=== PATIENT | female | born 1935 | race American Indian/Alaskan Native ===

== ENCOUNTER 2017-09-23 09:12 | Outpatient (CLI) | payer MEDICARE ==
[2017-09-23 10:08] LABS: Hematocrit 37.3 % (30.3-42.9); Hemoglobin 12.2 gm/dl (10.1-14.3); Mean Corpuscular HGB Conc 33 % (30-34); Mean Corpuscular Hemoglobin 31 pg (28-32); Mean Corpuscular Volume 93 fl (79-97); Platelet Count 214 K/mm3 (140-440); Red Blood Count 3.99 M/mm3 (3.65-5.03); Red Cell Distribution Width 15.2 % (13.2-15.2)
[2017-09-23 10:26] LABS: Albumin 3.8 g/dL (3.9-5); Calcium 9.1 mg/dL (8.4-10.2)
[2017-09-23 10:41] LABS: Bacteria,Urine 1+ /HPF (Negative); Bilirubin,Urine NEG (Negative); Blood,Urine NEG (Negative); Color,Urine Yellow (Yellow); Mucus,Urine 1+ /HPF; Urobilinogen,Urine < 2.0 mg/dL (<2.0)
[2017-09-23 10:45] LABS: Creatinine,Urine 259.9 mg/dL (0.1-20.0); Protein/Creatinine Ratio,Urine 0.62
--- NOTE | 2017-09-24 08:02 | Ultrasound Report ---
ULTRASOUND RENAL BILATERAL HISTORY: Abnormal results of kidney function studies. TECHNIQUE: transabdominal ultrasound with color Doppler interrogation. FINDINGS: The right kidney measures 8.8 x 4.5 x 4.5cm. Right renal cortex: 1.1cm. The left kidney measures 8.7 x 4.0 x 4.7cm. Left renal cortex: 1.3cm. Both kidneys are borderline to mildly atrophic. There is no evidence for calculus, mass, cystic disease or hydronephrosis. No perinephric fluid. Color Doppler interrogation suggests mild reduced cortical perfusion. The bladder is empty and unremarkable. IMPRESSION: Borderline atrophic kidneys. No focal renal lesion or obstruction. Consider early mild chronic renal parenchymal disease.
[2017-09-25 18:19] LABS: Albumin 3.8 g/dL (3.8-4.8); Gamma Globulin 1.6 g/dL (0.8-1.7)
== END 2017-09-23 09:13 | disposition home or self-care (01) ==
LOC: US 09:12
PROVIDERS: ATTEND Internal Medicine Nephrology
DX: I12.9 Hypertensive chronic kidney disease with stage 1 through stage 4 chronic kidney disease, or unspecified chronic kidney disease (principal); E11.22 Type 2 diabetes mellitus with diabetic chronic kidney disease; N18.9 Chronic kidney disease, unspecified; E78.5 Hyperlipidemia, unspecified
CPT/HCPCS: 36415; 76770; 80048; 81001; 82040; 82570; 84100; 84156; 84165; 84166; 85027